=== PATIENT | female | born 1965 | race Hispanic/Latino ===

== ENCOUNTER → 2018-01-12 | Outpatient (CLI) | payer OTHER ==
--- NOTE | 2018-01-13 11:14 | Diagnostic Imaging Report ---
EXAM: DXA BONE DENSITY INDICATIONS: OSTEOPENIA COMPARISON: None. FINDINGS: Proximal left femur neck bone mineral density (BMD) (g/cm2):0.846 Femur T-score (standard deviation relative to young adult mean BMD): 0.2 Femur Z-score (standard deviation relative to age-matched control group):0.8 Proximal left femur total bone mineral density (BMD) (g/cm2):0.934 Femur T-score (standard deviation relative to young adult mean BMD): 0.2 Femur Z-score (standard deviation relative to age-matched control group):0.5 Lumbar bone mineral density (BMD) (g/cm2):0.869 Lumbar T-score (standard deviation relative to young adult mean BMD): -1.6 Lumbar Z-score (standard deviation relative to age-matched control group):0.6 Change since prior exam (%): Femur:Not applicable. Spine:Not applicable. Change since oldest prior exam (%): Femur:Not applicable. Spine:Not applicable. CONCLUSION: 1. Bone mineral density in the left femur is classified as normal. Fracture risk is low. 2. Bone mineral density in the spine is classified as osteopenia. Fracture risk is moderate. World Health Organization Classification: *The Z-score is provided for informational purposes. The T-score is preferable for clinical decisions. When comparing exams, a change of >4% is considered statistically significant. SUGGESTED RECOMMENDATIONS: Normal \T\ Osteopenia:Consideration should be given to use of calcium supplementation, daily multiple vitamins and adequate exercise, as preventive measures against osteoporosis, if clinically indicated. Osteoporosis \T\ Severe Osteoporosis:In addition to the above, consideration should be given to medical therapy against osteoporosis, if clinically indicated. Dictated by: Jared Schultz M.D. on 01/13/2018 at 11:14 Electronically approved by: Jared Schultz M.D. on 01/13/2018 at 11:14
== END ==
LOC: MAMMO 09:53
PROVIDERS: ATTEND Internal Medicine
DX: Z12.31 Encounter for screening mammogram for malignant neoplasm of breast (principal); M85.80 Other specified disorders of bone density and structure, unspecified site; M15.9 Polyosteoarthritis, unspecified
CPT/HCPCS: 77067; 77080

== ENCOUNTER → 2018-11-08 | Outpatient (CLI) | payer OTHER ==
--- NOTE | 2018-11-08 17:36 | Diagnostic Imaging Report ---
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 DISCUSSION: Overlying clothing artifacts. The osseous structures are partially obscured by stool and bowel gas. Five non-rib bearing lumbar vertebral bodies. Mild right convex curvature. No displaced fracture or compression deformity is identified. Disc Spaces: Multilevel degenerative changes, most notably moderate at L5-S1. Facets: Multilevel degenerative changes, most notably at L5-S1. Sacrum: No acute displaced fracture, within the limitations of this exam. IMPRESSION: 1. No acute radiographic abnormality. 2. Multilevel degenerative changes, most notably moderate at L5-S1. Signed by: Dr. Franki Pérez D.O., M.M.M. on 11/08/2018 5:32 PM
== END ==
LOC: RAD 16:15
PROVIDERS: ATTEND Internal Medicine
DX: M47.816 Spondylosis without myelopathy or radiculopathy, lumbar region (principal)
CPT/HCPCS: 72110; 72220

== ENCOUNTER → 2018-12-23 | Outpatient (CLI) | payer OTHER ==
--- NOTE | 2018-12-23 11:03 | Diagnostic Imaging Report ---
EXAMINATION: MRI of the lumbar spine and sacrum without contrast HISTORY: Low back pain radiating to the left hip and lower extremity for last 7 months, left lower extremity pain and numbness for the last 2 months COMPARISON: Lumbar spine and pelvic x-ray 11/08/2018. TECHNIQUE: Lumbar spine: Sagittal T1, T2, STIR; axial T2 and proton density. Sacrum: Sagittal T2 fat-sat; axial T1, proton density; coronal T1, STIR. LUMBAR SPINE MRI FINDINGS: It is assumed that there are 5 lumbar vertebrae. Curvature/Alignment: Normal lordosis. Vertebrae: No evidence of recent fracture, infection, or neoplasm. Shallow Schmorl nodes from T11 to L2. Chronic endplate degenerative changes at L5-S1. Conus: Normal, terminating at L1 Cauda equina: Unremarkable. Lower thoracic: Facet arthroses on the left at T11-T12. Paraspinal soft tissues: Unremarkable. Degenerative changes: L1-L2: Unremarkable. L2-L3: Minimal symmetric disc bulging without stenoses L3-L4: Minimal symmetric disc bulge and facet arthrosis without stenoses L4-L5: -Approximately 8 mm heterogeneous signal intensity synovial cyst (central hypointense focus within the cyst may correspond to calcification/osteophyte fragment) medial to the left facet joint which is compressing the left lateral thecal sac and partially effacing the left lateral recess, with secondary compression of the traversing left L5 nerve root. -Bilateral facet joint effusion, bone marrow edema extending to the L5 pedicles and periarticular soft tissue swelling, consistent with degenerative facet synovitis. -Mild decreased disc height and mild symmetric disc bulge. L5-S1: Decreased disc height and T2 signal intensity, symmetric disc bulge and marginal endplate osteophytes, bilateral facet arthrosis. No significant spinal canal or foraminal stenosis. SACRUM MRI FINDINGS: Bones: Normal. No acute fractures, inflammation or neoplasm are seen. Soft tissues: Partially distended urinary bladder, with possible mild wall thickening. Partially visualized possible Nabothian cyst in the uterine cervix. Spinal canal and neural foramen: Patent Sacral nerve roots: Unremarkable IMPRESSION: 1. Effacement of the left lateral recess at L4-5 due to a prominent left facet joint synovial cyst which is compressing the thecal sac and left L5 nerve root, which likely explains the patient's symptoms. 2. Prominent degenerative Facet synovitis the at L4-L5. 3. Degenerative changes at L5-S1 without canal or foraminal stenoses. 4. No sacral abnormalities. Signed by: Dr. Glenda Cleaning M.D. on 12/23/2018 11:00 AM
== END ==
LOC: MRI 08:46
PROVIDERS: ATTEND Internal Medicine
DX: M47.16 Other spondylosis with myelopathy, lumbar region (principal); M47.818 Spondylosis without myelopathy or radiculopathy, sacral and sacrococcygeal region
CPT/HCPCS: 72148; 72195

== ENCOUNTER → 2019-01-04 | Outpatient (CLI) | payer OTHER | LOC: MAMMO 08:42 | PROVIDERS: ATTEND Internal Medicine | DX: Z12.31 Encounter for screening mammogram for malignant neoplasm of breast (principal) | CPT/HCPCS: 77067 ==

== ENCOUNTER → 2020-12-24 | Outpatient (CLI) | payer OTHER | LOC: MAMMO 10:39 | PROVIDERS: ATTEND Internal Medicine | DX: Z12.31 Encounter for screening mammogram for malignant neoplasm of breast (principal) | CPT/HCPCS: 77067 ==

== ENCOUNTER → 2021-01-15 | Outpatient (RCR) | payer OTHER | LOC: OT 10:01 | PROVIDERS: ATTEND Specialist | DX: M75.82 Other shoulder lesions, left shoulder (principal) ==

== ENCOUNTER → 2024-12-15 | Outpatient (REF) | payer OTHER | LOC: MAMMO 13:48 | PROVIDERS: ATTEND Obstetrics & Gynecology | DX: Z12.31 Encounter for screening mammogram for malignant neoplasm of breast (principal); M85.88 Other specified disorders of bone density and structure, other site | CPT/HCPCS: 77067; 77080 ==